=== PATIENT | male | born 1945 | race Caucasian/White ===

== ENCOUNTER → 2016-06-07 | Outpatient (CLI) | payer MEDICARE ==
--- NOTE | 2016-06-07 15:09 | KCIC ---
PROCEDURE Targeted soft tissue ultrasound of the lower leg HISTORY Lump in the anterior mid cramer area for 1 month COMPARISON None FINDINGS Scanning is performed in the area of concern. This documents a hypoechoic soft tissue collection just anterior to the tibia, measuring 3.0 cm x 1.2 cm x 2.9 cm. This appears to be of fluid signal with some internal echoes, suggesting complex content. No significant vascularity. IMPRESSION Complex fluid collection in the area of the lump, consider abscess or hematoma depending on clinical context. Necrotic tumor considered unlikely given lack of any solid vascular component. Electronically signed by: Germain Saldivar MD (Jun 07, 2016 15:08:17)
== END | disposition home or self-care (01) ==
LOC: KCIC US 12:00
PROVIDERS: ATTEND Orthopaedic Surgery
DX: S80.12XA Contusion of left lower leg, initial encounter (principal); X58.XXXA Exposure to other specified factors, initial encounter; Y93.89 Activity, other specified; Y92.89 Other specified places as the place of occurrence of the external cause; Y99.8 Other external cause status
CPT/HCPCS: 76881

== ENCOUNTER 2016-07-05 12:00 | Day surgery (SDC) | payer MEDICARE, OTHER ==
--- NOTE | 2016-07-04 17:11 | PDOC1 ---
History and Physical Date of Admission Date of Admission DATE: 07/05/16 Identification/Chief Complaint Chief Complaint Painful mass left tibia Source Source: Chart review History of Present Illness History of Present Illness Gino is here today for a lump that he has had to his left anterior tibia for the last 6-7 weeks. 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 He has redness to the tibia around the lump, which the patient states has gotten better since his primary care physician gave him an anti-biotic to take for 10 days about 3 weeks ago(he is unable to remember the name). He does not have any pain at the mass site except for when he bumps the area. He does have some numbness and tingling to his lower extremity but he attributes that to his diabetes. He is status post heart transplant patient, and knows that his immune system is not normal, due to the immunosuppressive drugs. He had aspiration of the mass in the office on 06/09/16, which revealed dark red hematoma blood. Past Medical History Past Medical History heart transplant in 2008 Endocrine: Diabetes Past Surgical History Past Surgical History heart transplant 2008 Social History Smoke: No ALCOHOL: none Drugs: None Current Medications Current Medications Current Medications Ondansetron HCl (Zofran) 4 mg PRN Q6HRS PRN IV Nausea; Start 07/05/16 at 07:00 ; Stop 07/06/16 at 06:59 Fentanyl Citrate (Fentanyl 2ml Vial) 25 mcg PRN Q5MIN PRN IV MILD PAIN; Start 07/05/16 at 07:00; Stop 07/06/16 at 06:59 Fentanyl Citrate (Fentanyl 2ml Vial) 50 mcg PRN Q5MIN PRN IV MODERATE PAIN; Start 07/05/16 at 07:00; Stop 07/06/16 at 06:59 Morphine Sulfate 1 mg 1 mg PRN Q10MIN PRN IV SEVERE PAIN; Start 07/05/16 at 07: 00; Stop 07/06/16 at 06:59 Lactated Ringer's (Iv Lactated Ringers) 1,000 ml @ 30 mls/hr Q24H IV ; Start at 07:00; Stop 07/05/16 at 18:59 Lidocaine HCl 2 ml 1X PRN PRN ID IV START; Start 07/05/16 at 07:00; Stop at 06:59 Hydromorphone HCl (Dilaudid) 0.5 mg PRN Q10MIN PRN IV SEVERE PAIN, Second choice; Start 07/05/16 at 07:00; Stop 07/06/16 at 06:59 Prochlorperazine Edisylate (Compazine) 5 mg PACU PRN PRN IV NAUSEA; Start 07/05 at 07:00; Stop 07/06/16 at 06:59 Active Scripts Active Reported Glimepiride 2 Mg Tablet 0.5 Tab PO DAILY Sirolimus 0.5 Mg Tablet 0.5 Mg PO DAILY Furosemide 40 Mg Tablet 1 Tab PO DAILY Novolog Mix 70-30 Flexpen Syrn (Insuln Asp Prt/Insulin Aspart) 100 Unit/1 Ml Insuln.pen 20 Unit SQ QEVNG Novolog Mix 70-30 Flexpen Syrn (Insuln Asp Prt/Insulin Aspart) 100 Unit/1 Ml Insuln.pen 50 Unit SQ DAILYWBKFT Metformin Hcl 1,000 Mg Tablet 1 Tab PO BID Atorvastatin Calcium 20 Mg Tablet 1 Tab PO QHS Warfarin Sodium 5 Mg Tablet 1.5 Tab PO SEE COMMENTS Warfarin Sodium 5 Mg Tablet 1 Tab PO QMONFR Aspir 81 (Aspirin) 81 Mg Tablet.dr 1 Tab PO DAILY Metoprolol Tartrate 50 Mg Tablet 1.5 Tab PO BID Omeprazole 20 Mg Capsule.dr 2 Cap PO DAILY Mycophenolic Acid (Mycophenolate Sodium) 360 Mg Tablet.dr 360 Mg PO BID Allergies Allergies: Coded Allergies: cephalexin (Verified Allergy, Intermediate, UNKNOWN -HAPPENED LONG TIME( ITCHING? -WAS GIVEN MEDICATION), 06/30/16) perflutren (Verified Allergy, Unknown, SORE ON THE BACK, 07/04/16) tacrolimus (Verified Allergy, Unknown, Unknown, 07/04/16) Physical Exam General: Alert, Oriented X3, Cooperative, No acute distress HEENT: Atraumatic, EOMI Lungs: Normal air movement Heart: RRR Abdomen: Soft Extremities: No clubbing, No cyanosis, Normal pulses, Other (The knee joint itself is unremarkable. He seems to have a hematoma of the anterior tibia. It is slightly red, although I don't think there is an abscess. It has recurred to the same size it was before, despite aspiration) Skin: No rashes, No breakdown Neuro: Normal speech, Sensation intact Psych/Mental Status: Mental status NL, Mood NL VTE Prophylaxis Ordered VTE Prophylaxis Devices: Yes VTE Pharmacological Prophylaxi: Yes Assessment/Plan Assessment/Plan He is frustrated and says he "wants it off". Dr. Castillo spoke to him about the risks and benefits of that. Since he is a heart transplant patient, and on Coumadin or other blood thinners, and on immunosuppressives, there is a higher risk tear of recurrence or infection. Despite that, it has recurred despite aspiration, and does not seem to be resolving spontaneously. We discussed the risks and benefits and he would like to proceed with incision and drainage of the left leg hematoma. This could be done as an outpatient, although he will need a bridge of Lovenox while he is off Coumadin. He seems quite familiar with that, and probably his dosage which is 100 mg of Lovenox twice a day perioperatively. MAGO ROMAN Jul 04, 2016 17:11
[~2016-07-05] VITALS: Ht 180.3 cm; Wt 107.0 kg
[~2016-07-05 12:00] MED LIST: ASPI-482 PO; ATOR20TA58 PO; FENTANYL PF 100 MCG/2 ML VIAL. IV PRN; FURO40TA4 PO; GLIM2TAB2 PO; HYDROMORPHONE 2 MG/ML VIAL. IV PRN; INSU100I16 SQ; IV RINGERS,LACTATED 1000ML 1,000 ML IV SCH; LIDOCAINE 1% 1 ML SYRINGE. ID PRN; METF10002 PO; METO50TA2 PO; MORPHINE SULFATE 2 MG/ML DISP.SYRIN. IV PRN; MYCO360T3 PO; OMEP20CA9 PO; ONDANSETRON PF 4 MG/2 ML VIAL. IV PRN; PROCHLORPERAZINE 10 MG/2 ML VIAL. IV PRN; SIRO0.5T3 PO; WARF5TAB7 PO
[2016-07-05] MEDS ORDERED: ENOX100D SQ (13:14)
[2016-07-05] MEDS ORDERED: FENTANYL PF 100 MCG/2 ML VIAL. ONE (14:17)
[2016-07-05] MEDS ORDERED: MIDAZOLAM HCL 2 MG/2 ML VIAL. ONE (14:17)
[2016-07-05] MEDS ORDERED: ONDANSETRON PF 4 MG/2 ML VIAL. ONE (14:18)
[2016-07-05] MEDS ORDERED: FAMOTIDINE 20 MG/2 ML VIAL ONE (14:18)
[2016-07-05] MEDS ORDERED: LIDOCAINE 2% 100 MG/5 ML DISP.SYRIN. ONE (14:18)
[2016-07-05] MEDS ORDERED: PROPOFOL 20 ML IV ONE (14:18)
[2016-07-05] MEDS ORDERED: CEFAZOLIN 2GM PREMIX 50 ML IV ONE (14:19)
[2016-07-05] MEDS ORDERED: DESFLURANE 31 TO 60 MINUTES IH ONE (15:32)
--- NOTE | 2016-07-05 15:52 | PDOC4 ---
Operative Note Operative Note Date of Procedure: July 05, 2016 Pre-Op Diagnosis: Left leg hematoma Post-Op Diagnosis: Left leg hematoma Procedure: Left leg incision, drainage, hematoma Surgeon: Xiang Castillo MD Director Outpatient Services: Fatuma Moya PA-C Anesthesia: General EBL: 10 mL Specimens Obtained: Aerobic and anaerobic cultures Complications: none Drains: none Indications for Procedure: The patient is a 70-year-old man with prior heart transplant and who is on immunosuppression. He has a hematoma on his leg that has been present for 6 or 7 weeks, and has been recurrent despite office aspiration. His transplant physician is concerned that he may have a small abscess, and because of the immunosuppression it would be difficult to tell if this is infected clinically. A small abscess in his leg could be life- threatening due to his immunosuppression, diabetes, and previous heart transplant. He has been on antibiotics from his transplant physician for the hematoma/abscess. He and I discussed surgical incision and drainage of the abscess/hematoma and probable closure. We discussed the potential risks of recurrence, infection, or other potential surgical or anesthetic competitions. The patient and I discussed the risks, benefits and alternatives of surgery. The Procedure in Detail: The patient was identified in the preoperative holding area. The correct left lower extremity was marked by me. The patient was taken to the operating room where general anesthesia was used. The patient was positioned supine on the operating table. Preoperative antibiotics were given intravenously, 600 mg intravenous clindamycin. A tourniquet was placed on the upper thigh but never inflated. A timeout procedure was performed. Skin prep was used, circumferential, using chlorhexidine. Sterile drapes were applied. A longitudinal incision was used over the palpable abscess/hematoma. A 15 blade scalpel used for the skin incision. Dark hematoma fluid was encountered, and cultures were taken. Digital dissection was used to break up the hematoma edges , and clear out the remaining coagulated hematoma. Copious irrigation with saline was used to remove additional hematoma. The hematoma was down to the level of the anterior tibial periosteum, and to the tibialis anterior muscle fascia but did not extend into the deep muscle compartments. Bovie electrocautery was used, and there did seem to be a persistently bleeding small vein that may have been the source of the hematoma. Electrocautery coagulation was used, and thorough hemostasis was achieved. Final irrigation with saline was performed. The incision was closed carefully in layers. 3-0 Vicryl was used in the fascia, and in the subcutaneous tissue to close the potential space. 3-0 Vicryl was used in the subcutaneous tissues to reapproximate them. 4-0 nylon horizontal mattress and simple interrupted 4-0 nylon sutures were used to reapproximate the skin. A sterile Ioban dressing was placed. Needle and sponge counts were correct. There were no apparent complications. XIANG CASTILLO MD Jul 05, 2016 15:52
[2016-07-05 16:01] LABS: BASO # 0.1 x10^3/uL (0.0-0.2); BASO % 1 % (0-3); EOS % 1 % (0-3); HEMATOCRIT 45.4 % (39.0-53.0); HEMOGLOBIN 14.5 g/dL (13.0-17.5); LYMPH # 1.9 x10^3/uL (1.0-4.8); LYMPH % 20 % (24-48); MEAN CORPUSCULAR HEMOGLOBIN 26 pg (25-35); MEAN CORPUSCULAR HGB CONC 32 g/dL (31-37); MEAN CORPUSCULAR VOLUME 83 fL (79-100); MONO % 12 % (0-9); NEUT % 66 % (31-73); PLATELET COUNT 215 x10^3/uL (140-400); RED BLOOD COUNT 5.49 x10^6/uL (4.30-5.70); RED CELL DISTRIBUTION WIDTH 16.5 % (11.5-14.5); WHITE BLOOD COUNT 9.7 x10^3/uL (4.0-11.0)
[2016-07-05] MEDS ORDERED: DOXY100C2 PO (16:05)
[2016-07-05 16:14] LABS: CALCIUM 8.9 mg/dL (8.5-10.1); GFR 73.9; POTASSIUM 3.2 mmol/L (3.5-5.1)
[2016-07-05] MEDS ORDERED: HYDR-2679 PO (16:17)
[2016-07-05 16:19] LABS: ALBUMIN 3.2 g/dL (3.4-5.0); ALBUMIN/GLOBULIN RATIO 0.6 (1.0-1.7); TOTAL BILIRUBIN 0.9 mg/dL (0.2-1.0); TOTAL PROTEIN 8.6 g/dL (6.4-8.2)
[2016-07-05 16:30] VITALS: BP 151/82
[2016-07-05 16:44] LABS: INR 1.1 (0.8-1.1); PROTHROMBIN TIME PATIENT 13.5 SEC (11.7-14.0)
== END 2016-07-05 17:11 | disposition home or self-care (01) ==
LOC: SURG 12:00
PROVIDERS: ATTEND Orthopaedic Surgery
DX: S70.12XA Contusion of left thigh, initial encounter (principal); E11.9 Type 2 diabetes mellitus without complications; E78.00 Pure hypercholesterolemia, unspecified; I10 Essential (primary) hypertension; E66.9 Obesity, unspecified; K21.9 Gastro-esophageal reflux disease without esophagitis; F41.9 Anxiety disorder, unspecified; Z90.49 Acquired absence of other specified parts of digestive tract; Z98.42 Cataract extraction status, left eye
CPT/HCPCS: 27603; 36415; 80053; 82947; 85027; 85610; 85730; 87205; J0690; J2250; J2405; J2704; J3010; S0028